=== PATIENT | female | born 1950 | race Caucasian/White ===

== ENCOUNTER 2020-06-13 11:47 | Outpatient (CLI) | payer BC, SELFPAY ==
--- NOTE | ~2020-06-13 | XR_ITS ---
XR abdomen/kub 1V 06/13/2020 12:09 Indication: Renal stones Procedure: KUB Comparison: 07/04/2010 Findings: There are multiple left renal stones. Largest in the lower pole measuring approximately 4 m m. Bowel gas pattern is nonobstructive. No acute osseous abnormality. Lung bases unremarkable. Impression: 1: Left nephrolithiasis. Reviewed, dictated and finalized at location A. [facility] [employer] Impression: 1: Left nephrolithiasis.
== END 2020-06-13 11:48 | disposition home or self-care (01) ==
PROVIDERS: Visit Provider Urology
DX: N20.0 Calculus of kidney (principal)
CPT/HCPCS: 74018

== ENCOUNTER 2020-07-16 02:24 | Outpatient (CLI) | payer BC, SELFPAY ==
[2020-07-16 18:38] LABS: SARS-CoV-2 RNA PCR Positive
== END 2020-07-16 02:25 | disposition home or self-care (01) ==
LOC: ANHCOVIDDT 02:24
PROVIDERS: Visit Provider Urology
DX: U07.1 COVID-19 (principal)
CPT/HCPCS: C9803; U0003; U0005

== ENCOUNTER 2020-08-23 13:10 | Outpatient (CLI) | payer BC, SELFPAY ==
[2020-08-23 13:41] LABS: Prothrombin Time 13.7 Seconds (11.1-14.7)
== END 2020-08-23 13:11 | disposition home or self-care (01) ==
LOC: ANHSURGERY 13:15
PROVIDERS: Visit Provider Urology
DX: N20.0 Calculus of kidney (principal); Z01.818 Encounter for other preprocedural examination
CPT/HCPCS: 36415; 85610; 85730; 87086

== ENCOUNTER 2020-08-30 00:53 | Day surgery (SDC) | payer BC, SELFPAY ==
[2020-07-10 08:50] VITALS: BMI 39.1
[2020-08-12 12:25] VITALS: BMI 39.1
--- NOTE | 2020-08-29 13:18 | WPDANESEPPF ---
Anes - Initial Pre Proc Eval Procedure: Operation Date: 08/30/20 08:30 Proposed Procedures p Left Renal Extracorporeal Shock Wave Lithotripsy - Rasta Woods MD Date/Time: 08/29/20 13:18 Surgeon: Rasta Woods MD Pre Op Diagnosis: Left Renal Kidney Stone Patient Data Age: 70 Gender: F Height: 5 ft 7 in Weight: 113.4 kg Allergies Allergy/AdvReac Type Severity Reaction Status Date / Time No Known Allergies Verified 08/20/20 10:25 Home Medications Medication Instructions Recorded Confirmed Type acetaminophen [Tylenol 8 Hour] 650 mg PO Q12H PRN 07/10/20 08/20/20 History amlodipine 5 mg PO QAM 07/10/20 08/20/20 History apixaban [Eliquis] 5 mg PO BID 07/10/20 08/20/20 History aspirin [Adult Low Dose Aspirin] 81 mg PO DAILY 07/10/20 08/20/20 History atorvastatin 10 mg PO DAILY 07/10/20 08/20/20 History hydrochlorothiazide 25 mg PO QAM 07/10/20 08/20/20 History metoprolol succinate 50 mg PO QAM 07/10/20 08/20/20 History omega-3 fatty acids [Fish Oil] 1,000 mg PO DAILY 07/10/20 08/20/20 History potassium 99 mg PO DAILY 07/10/20 08/20/20 History turmeric 400 mg PO DAILY 07/10/20 08/20/20 History venlafaxine 75 mg PO QAM 07/10/20 08/20/20 History PMFSH Past Medical History Medical History (Updated 08/29/20 @ 13:18 by Wesley Dorado MD) Atrial fibrillation Hyperlipidemia KEMAR (obstructive sleep apnea) Social History Social History Smoking status: Never smoker Spiritual care concerns: No Anes - Eval Final PreProcedure Day of Procedure 08/29/20 13:18 Informed Consent: The patient's anesthetic plan and its attendant risks and benefits were discussed with the patient/family/POA. Questions were solicited and answers provided to the satisfaction of the patient/family/POA.
[2020-08-30] VITALS (7 sets, daily range): BP systolic 130–151; BP diastolic 68–77; PULSE 58–79; RESP 12–18; TEMP 36.2–36.3; O2SAT 97–100
--- NOTE | ~2020-08-30 | XR_ITS ---
EXAMINATION: XR abdomen/kub 1V DATE: 08/30/2020 06:29 INDICATION: Calcium kidney stone. TECHNIQUE: A supine view of the abdomen on 2 radiographs was obtained. COMPARISON: Abdomen radiographs 06/13/2020 FINDINGS: There are no dilated loops of bowel. There are phleboliths in the pelvis. The kidneys are o bscured by bowel. There are two 4 mm stones in left kidney. IMPRESSION: 1. Two 4 mm stones in left kidney. Reviewed, dictated and finalized at location A. [employer]
--- NOTE | 2020-08-30 07:23 | WPDHPUPDATE1 ---
History and Physical Update Update Date/Time: 08/30/20 07:23 History and Physical has been reviewed, including an updated exam of the patient. There are NO changes in the patient's condition. Risks, benefits, and alternatives have been discussed and questions answered. Patient agrees to proceed with procedure.
[2020-08-30] MEDS: LACTATED RINGERS 1,000 ML 30 ML IV CONT (07:26)
--- NOTE | 2020-08-30 07:58 | WPDANESEPPF ---
Anes - Initial Pre Proc Eval Procedure: Operation Date: 08/30/20 08:30 Proposed Procedures p Left Renal Extracorporeal Shock Wave Lithotripsy - Rasta Woods MD Date/Time: 08/30/20 07:58 Surgeon: Rasta Woods MD Pre Op Diagnosis: Left Renal Kidney Stone Patient Data Age: 70 Gender: F Height: 5 ft 7 in Weight: 110.5 kg Last Vital Signs Temp 36.3 C L 08/30/20 07:32 Pulse 77 08/30/20 07:32 BP 140/68 08/30/20 07:32 Pulse Ox 98 08/30/20 07:32 Allergies Allergy/AdvReac Type Severity Reaction Status Date / Time No Known Allergies Verified 08/20/20 10:25 Home Medications Medication Instructions Recorded Confirmed Type acetaminophen [Tylenol 8 Hour] 650 mg PO Q12H PRN 07/10/20 08/30/20 History amlodipine 5 mg PO QAM 07/10/20 08/30/20 History apixaban [Eliquis] 5 mg PO BID 07/10/20 08/30/20 History aspirin [Adult Low Dose Aspirin] 81 mg PO DAILY 07/10/20 08/30/20 History atorvastatin 10 mg PO DAILY 07/10/20 08/30/20 History hydrochlorothiazide 25 mg PO QAM 07/10/20 08/30/20 History metoprolol succinate 50 mg PO QAM 07/10/20 08/30/20 History omega-3 fatty acids [Fish Oil] 1,000 mg PO DAILY 07/10/20 08/30/20 History potassium 99 mg PO DAILY 07/10/20 08/30/20 History turmeric 400 mg PO DAILY 07/10/20 08/30/20 History venlafaxine 75 mg PO QAM 07/10/20 08/30/20 History Patient hx anesthesia problems: none Family hx anesthesia problems: none PMFSH Past Medical History Medical History Anxiety Atrial fibrillation Hyperlipidemia Hypertension KEMAR (obstructive sleep apnea) Vaginal cancer Social History Social History Smoking status: Never smoker Living arrangements: with family Spiritual care concerns: No Anes - Eval Final PreProcedure Day of Procedure 08/30/20 07:58 Patient weight: obese Heart: regular rate and rhythm Lungs: clear to auscultation Airway: Mallampati scale class II Neurological: alert and oriented Last oral intake: >/= 8 hours ASA classification: III Emergent: no Anesthetic plan: proceed Anesthesia type and monitoring: general LMA and standard monitoring Informed Consent: The patient's anesthetic plan and its attendant risks and benefits were discussed with the patient/family/POA. Questions were solicited and answers provided to the satisfaction of the patient/family/POA.
[2020-08-30] MEDS: ceFAZolin 2 GM/D5W 50 ML 2 GM/50 ML BAG IVPB (08:29)
--- NOTE | 2020-08-30 09:20 | PM.PROC ---
Procedure Note - Detailed Date of procedure: 08/30/20 Pre-op diagnosis: Left Renal Kidney Stone Post-op diagnosis: same Procedure performed: Lithotripsy of left renal calculus 8 mm Description of procedure: Patient is taken the operative suite and correctly identified. Once stone was located in both planes skin 2500 shocks were given to the stone. There appeared to be fragmentation of the stone. Patient tolerated procedure well without any complications and is taken recovery stable condition. He will follow up in 7-10 days with a KUB. Anesthesia: GLMA Surgeon: Rasta Woods MD Drains: No Packing: No Pathology: none sent Complications: No immediate complications Condition: stable Disposition: PACU
--- NOTE | 2020-08-30 10:41 | SUR.PHASEII ---
Patient is unhooked from the monitors and ready to go. Patient is just waiting for ride.
== END 2020-08-30 10:50 | disposition home or self-care (01) ==
PROVIDERS: Visit Provider Urology
PROC: (CPT 50590; principal; 2020-08-30 08:30)
DX: N20.0 Calculus of kidney (principal); I48.91 Unspecified atrial fibrillation; E78.5 Hyperlipidemia, unspecified; I10 Essential (primary) hypertension; G47.33 Obstructive sleep apnea (adult) (pediatric); Z79.82 Long term (current) use of aspirin; Z79.01 Long term (current) use of anticoagulants; Z85.89 Personal history of malignant neoplasm of other organs and systems; E66.9 Obesity, unspecified; Z68.38 Body mass index [BMI] 38.0-38.9, adult
CPT/HCPCS: 50590; 36415; 74018; 85610; 85730; 87086; J0690; J1100; J2250; J2405; J2704; J3010; J7120

== ENCOUNTER 2020-09-18 08:47 | Outpatient (CLI) | payer BC, SELFPAY ==
--- NOTE | ~2020-09-18 | XR_ITS ---
XR abdomen/kub 1V 09/18/2020 09:03 Indication: Renal stones Procedure: KUB Comparison: 08/30/2020 Findings: There are left renal stones, largest in the lower pole measuring approximately 4 mm. No def inite right renal stones are identified. There are pelvic calcifications, most likely phleboliths. Mo derate lumbar spondylosis. No acute osseous abnormality. There is osteoarthritis of the hips. Impression: 1: No significant change to left nephrolithiasis. Reviewed, dictated and finalized at location A. Impression: 1: No significant change to left nephrolithiasis.
== END 2020-09-18 08:48 | disposition home or self-care (01) ==
LOC: ANHIMG 08:52
PROVIDERS: Visit Provider Urology
DX: N20.0 Calculus of kidney (principal)
CPT/HCPCS: 74018